=== PATIENT | female | born 1995 | race Caucasian/White ===

== ENCOUNTER 2018-12-10 01:03 | Emergency (ER) | payer BC ==
[~2018-12-10] VITALS: Ht 157.5 cm; Wt 57.6 kg
[2018-12-10 02:29] LABS: Urine Pregnacy Test Negative (Negative)
[2018-12-10 03:03] LABS: Alcohol, Urine < 3.0 mg/dL (0-5); Amphetamine Screen, Urine NEGATIVE (NEGATIVE); Barbiturate Scree,Urine NEGATIVE (NEGATIVE); Benzodiazephine Screen, Urine NEGATIVE (NEGATIVE); Cannabinoid Screen, Urine POSITIVE (NEGATIVE); Cocaine Screen, Urine NEGATIVE (NEGATIVE); Opiate Scree,Urine NEGATIVE (NEGATIVE); Phencyclidine Screen, Urine NEGATIVE (NEGATIVE)
[2018-12-10 03:20] LABS: Urine Amorphous Crystal FEW /hpf (None Seen); Urine Bacteria FEW /hpf (None Seen); Urine Blood 2+ /uL (Negative); Urine Mucus FEW (None Seen); Urine Specific Gravity 1.023 (1.001-1.035); Urine WBC 9 /hpf (0 - 5)
[2018-12-10 07:36] VITALS: BP 126/85
[2018-12-10 07:46] LABS: Anion Gap 5 (5-15); Blood Urea Nitrogen 14 mg/dL (7-18); Calcium 8.5 mg/dL (8.5-10.1); Carbon Dioxide 26 mmol/L (21-32); Chloride 110 mmol/L (98-107); Glucose 97 mg/dL (74-106); Potassium 3.4 mmol/L (3.5-5.1); Sodium 141 mmol/L (136-145)
[2018-12-10 07:49] LABS: Basophils # (auto) 0 uL; Basophils % (auto) 0.4 % (0.0-2.0); Eosinophils # (auto) 0 uL; Eosinophils % (auto) 0.6 % (0.0-7.0); Hemoglobin 12.6 g/dL (12.2-16.2); Lymphocytes # (auto) 1.3 uL; Lymphocytes % (auto) 19.2 % (10.0-50.0); Mean Corpuscular Hemoglobin 30.1 pg (28.0-32.0); Mean Corpuscular Hgb Conc. 32.5 g/dL (32.0-36.0); Mean Corpuscular Volume 92.9 fL (80.0-100.0); Monocytes # (auto) 0.6 uL; Monocytes % (auto) 8.5 % (0.0-12.0); Neutrophils # (auto) 4.9 uL; Neutrophils % (auto) 71.3 % (37.0-80.0); Platelet Count (auto) 250 10^3/uL (140-450); White Blood Cell 6.8 10^3/uL (4.4-10.8)
[2018-12-10 07:51] LABS: BUN/Creatinine Ratio 22.6; GFR African American 156 mL/min; GFR Non-African American 129 mL/min
[2018-12-10 08:12] LABS: INR 1.02 (0.9-1.15); Partial Thromboplastin Time 27.6 sec (23.64-32.05)
== END 2018-12-10 08:41 | disposition home or self-care (01) ==
LOC: ER 01:10
DX: S02.119A Unspecified fracture of occiput, initial encounter for closed fracture (principal); N39.0 Urinary tract infection, site not specified; R55 Syncope and collapse; F12.10 Cannabis abuse, uncomplicated; Z88.2 Allergy status to sulfonamides; W19.XXXA Unspecified fall, initial encounter; Y93.89 Activity, other specified; Y99.8 Other external cause status; Y92.89 Other specified places as the place of occurrence of the external cause
CPT/HCPCS: 36415; 70450; 80048; 80307; 81001; 81025; 84484; 85025; 85610; 85730; 93005